=== PATIENT | female | born 1965 | race Caucasian/White ===

== ENCOUNTER → 2019-06-23 | Outpatient (CLI) | payer OTHER ==
--- NOTE | 2019-06-23 12:44 | RAD ---
Examination: KNEE RIGHT 3V History: Right knee pain, history of replacement Comparison/Correlation: None Findings: 3 images of the right knee were obtained. Total right knee arthroplasty is present. Osteopenia is present. No displaced fracture or bone destruction. No loosening. No joint effusion. Impression: Total right knee joint arthroplasty is intact. Electronically signed by: Mitchel Aaron MD (06/23/2019 12:40 PM) [id number]
== END | disposition home or self-care (01) ==
LOC: DXRAD 10:14
PROVIDERS: ATTEND Orthopaedic Surgery
DX: M25.561 Pain in right knee (principal); Z96.651 Presence of right artificial knee joint
CPT/HCPCS: 73562